=== PATIENT | male | born 1985 | race Asian ===

== ENCOUNTER 2021-10-05 10:02 | Emergency (ER) | payer OTHER, SELFPAY ==
--- NOTE | ~2021-10-05 | XR_ITS ---
EXAMINATION: XR finger 5th LT min 2V DATE: 10/05/2021 10:45 INDICATION: Hyperextension injury to the left fifth digit. TECHNIQUE: Dorsal palmar, lateral and 2 oblique views of the left fifth digit were obtained COMPARISON: None FINDINGS: Oblique extra-articular fracture extending from the ulnar side of the base of the proximal phalanx to the radial side of the distal neck. There is slight proximal and palmar/ulnar migration of the fract ure resulting in 1-2 mm palmar/ulnar displacement the distal margin of the fracture. No other fractur es identified. Normal alignment and joint space at the visualized joints of the left wrist and hand. Mild soft tissue swelling about the base of the fifth digit. IMPRESSION: 1. Minimally displaced oblique diaphyseal fracture of the left fifth proximal phalanx. Reviewed, dictated and finalized at location B. [employer]NA[employer] IMPRESSION: 1. Minimally displaced oblique diaphyseal fracture of the left fifth proximal p halanx.
[2021-10-05 10:24] VITALS: BP 139/89; PULSE 58; RESP 18; TEMP 36.2; O2SAT 100
--- NOTE | 2021-10-05 10:24 | ED.GENADULT ---
HPI - General Adult General Chief complaint: Extremity Injury, Upper Stated complaint: lt 5th finger injury Time Seen by Provider: 10/05/21 10:35 Source: patient Mode of arrival: ambulatory Limitations: no limitations History of Present Illness HPI narrative: 36-year-old male who presents to [facility] with complaints of hyperextension of left fifth finger 2 weeks ago and is unable to make a fist and he has some swelling and discomfort to the base of his left 5th finger. Patient states that he did feel pop at time of leaning on the finger denies any trauma or fall. Patient has strong left radial pulse with brisk capillary refill to his left 5th finger nail bed, denies any tingling or numbness to his left hand or fingers. MD complaint: Left fifth finger injury Onset (ago): week(s) Location: left and upper extremity (left 5th finger) Treatments prior to arrival: NSAID, cold therapy and other (Tylenol) Related Data Home Medications Medication Instructions Recorded Confirmed sertraline 50 mg PO DAILY 10/05/21 10/05/21 Allergies Allergy/AdvReac Type Severity Reaction Status Date / Time No Known Allergies Allergy Verified 10/05/21 10:27 Review of Systems Review of Systems: CONSTITUTIONAL: Denies fever, chills, or sweats. EYES: Denies visual changes, redness, or discharge. ENT: Denies rhinorrhea, congestion, sore throat, or otalgia. CARDIOVASCULAR: Denies chest pain, palpitations, or edema. RESPIRATORY: Denies cough or dyspnea. GASTROINTESTINAL: Denies abdominal pain, nausea, vomiting, or diarrhea. GENITOURINARY: Denies dysuria or hematuria. SKIN: Denies rash or itching. MUSCULOSKELETAL: Denies back pain,Positive for left 5th finger swelling and discomfort ,or myalgia. NEUROLOGIC: Denies headache, numbness, or weakness. PSYCHIATRIC: Positive for history of anxiety or depression. All systems reviewed & are unremarkable except as noted in HPI and below PMFSH Past Medical History Medical History (Updated 10/05/21 @ 11:12 by Ameena Escobar NP) Anxiety and depression History of sinus problem Social History Social History (Updated 10/05/21 @ 10:56 by Ameena Escobar NP) Smoking status: Never smoker Alcohol intake: current Alcohol use details: social Substance use: never Additional living arrangements comments: [employer] Gender identity (if verbalized by the patient): Male Comments At time of signature, agree with nursing past medical, surgical, social and family history. There is no relevant family history pertinent to the presenting complaint Exam Narrative: GENERAL: Well-appearing, well-nourished, and in no acute distress. HEAD: Normocephalic, atraumatic. EYES: PERRLA and EOMI. ENT: Nares clear, no rhinorrhea or epistaxis. Mucous membranes moist. NECK: Supple.no lymphadenopathy CHEST: Clear to auscultation. No respiratory distress.no cough noted, SAO2 HEART: Regular rate and rhythm. No murmur heard. Normal peripheral pulses. ABDOMEN: Soft, nontender, nondistended, normal active bowel sounds. EXTREMITIES: Normal range of motion. No edema with exception to swelling and pain to proximal left 5th finger and inability to make a full fist. Patient has strong left radial pulse with brisk capillary refill to his left 5th finger nail bed with no tingling or numbness to his left hand or fingers. SKIN: Warm, dry, no rash. NEURO: No focal deficits. Alert and oriented x3. Course Course Level of Care: Express Care Visit Vital Signs Vital signs: Vital Signs Temperature 36.2 C L 10/05/21 10:24 Pulse Rate 58 L 10/05/21 10:24 Respiratory Rate 18 10/05/21 10:24 Blood Pressure 139/89 10/05/21 10:24 Pulse Oximetry 100 10/05/21 10:24 Temperature 36.2 C L 10/05/21 10:24 Pulse Rate 58 L 10/05/21 10:24 Respiratory Rate 18 10/05/21 10:24 Blood Pressure 139/89 10/05/21 10:24 Pulse Oximetry 100 10/05/21 10:24 Procedures Orthopedic Splinting/Casting left 5th finger:
== END 2021-10-05 11:22 | disposition home or self-care (01) ==
PROVIDERS: Emergency Provider Registered Nurse
DX: S62.617A Displaced fracture of proximal phalanx of left little finger, initial encounter for closed fracture (principal); X50.9XXA Other and unspecified overexertion or strenuous movements or postures, initial encounter; F41.9 Anxiety disorder, unspecified; F32.A Depression, unspecified
CPT/HCPCS: 29125; 73140; 99204; G0463